=== PATIENT | female | born 1990 | race Caucasian/White ===

== ENCOUNTER 2019-09-15 14:40 | Inpatient (IN) | payer MEDICAID ==
[~2019-09-15] VITALS: Ht 160 cm; Wt 93.0 kg
[2019-09-15] MEDS: OXYTOCIN-LR 20 UNITS/1000 ML 1,000 ML IV SCH (20:15)
[2019-09-15 20:55] LABS: APPEARANCE,URINE Cloudy (CLEAR); BILIRUBIN,URINE Negative (NEGATIVE); COLOR,URINE Yellow (YELLOW); GLUCOSE, URINE (UA) Negative (NEGATIVE); KETONES,URINE Negative (NEGATIVE); LEUKOCYTE ESTERASE ,URINE Small (NEGATIVE); NITRATE,URINE Negative (NEGATIVE); OCCULT BLOOD,URINE Negative (NEGATIVE); PH,URINE 7.5 (5.0-8.0); PROTEIN,URINE Negative (NEGATIVE); UROBILINOGEN,URINE 0.2 mg/dL (0.2-1.0)
[2019-09-15] MEDS ORDERED: AMPICILLIN 2GM+NS 100ML 100 ML IV SCH (21:00)
[2019-09-15 21:27] LABS: BACTERIA,URINE Few /HPF (None Seen); RBC,URINE 0-1 /HPF (0-1); SQUAMOUS EPITHELIAL CELL,UR Few /HPF (0-2)
[2019-09-15 21:28] LABS: AMORPHOUS SEDIMENT,UR Few /LPF (None Seen)
[2019-09-15 21:46] LABS: HEMATOCRIT 35.1 % (36-48); MEAN CORPUSCULAR HEMOGLOBIN 28.9 pg (27.0-33.0); MEAN CORPUSCULAR HGB CONC 33.2 g/dL (32.0-36.0); MEAN CORPUSCULAR VOLUME 87.1 fL (79-99); NUCLEATED RED BLOOD CELLS 0.1 % (0.0-0.19); PLATELET COUNT (AUTO) 195 K/uL (130-400); RED BLOOD CELL COUNT(AUTO) 4.03 MIL/uL (4.00-5.50); RED CELL DISTRIBUTION WIDTH 15.7 % (11.0-15.5); WHITE BLOOD COUNT (AUTO) 8.9 K/uL (4.8-10.8)
[2019-09-15 22:20] VITALS: BP 120/72
[2019-09-16] VITALS (8 sets, daily range): BP systolic 93–158; BP diastolic 55–76
[2019-09-16] MEDS: LACTATED RINGERS 1000ML 1,000 ML IV PRN ×2 (00:20→05:07)
[2019-09-16] MEDS: AMPICILLIN 1GM+NS 50ML 50 ML IV SCH ×4 (01:01→15:00)
[2019-09-16] MEDS: OXYTOCIN-LR 20 UNITS/1000 ML 1,000 ML IV SCH ×3 (03:54→20:15)
[2019-09-16] MEDS ORDERED: MEPERIDINE-PF 50 MG/ML SYG IVP SCH (07:15)
[2019-09-16] MEDS ORDERED: PROMETHAZINE HCL 25 MG/ML 1ML AMPULE IM SCH (07:15)
[2019-09-16] MEDS ORDERED: WITCH HAZEL 1 PAD TP PRN (08:45)
[2019-09-16] MEDS ORDERED: ACETAMINOPHEN-CODEINE 300/30MG TAB PO PRN (08:45)
[2019-09-16] MEDS ORDERED: ACETAMINOPHEN 325 MG TAB PO PRN (08:45)
[2019-09-16] MEDS ORDERED: LANOLIN 30GM OINTMENT TP PRN (08:45)
[2019-09-16] MEDS ORDERED: BENZOCAINE/LANOLIN/ALOE VERA 60 ML AEROSOL TP PRN (08:45)
[2019-09-16] MEDS ORDERED: MEASLES/MUMPS/RUBELLA VACCINE, LIVE 0.5 ML/VIAL SQ PRN (08:45)
[2019-09-16] MEDS ORDERED: DIPH,PERTUSS(ACELL),TET VAC/PF 0.5 ML VIAL IM PRN (08:45)
[2019-09-16] MEDS ORDERED: FLU VACC QS2019-20 36MOS UP/PF 60 MCG/0.5 ML ML IM SCH (09:00)
--- NOTE | 2019-09-16 09:00 | NUR ---
FUNDUS FIRM AT UMBILICUS, SCANT BLEEDING ON MASSAGE. PT REPORTS NO PAIN AT THIS TIME. PT. ORIENTED TO ROOM. ADVISED PT TO CALL WHEN NEEDING TO AMBULATE FOR THE FIRST TIME.
--- NOTE | 2019-09-16 09:10 | NUR ---
SITZ BATH, DERMAPLAST SPRAY AND LANOLIN GIVEN AND EXPLAINED TO PATIENT. PT VOICED UNDERSTANDING.
--- NOTE | 2019-09-16 09:15 | NUR ---
FUNDUS FIRM, BLEEDING IS SCANT. NO CLOTS EXPELLED.
--- NOTE | 2019-09-16 09:35 | NUR ---
FUNDUS FIRM, BLEEDING IS SCANT. PERICARE GIVEN AT THIS TIME. CALL LIGHT LEFT IN REACH.
[2019-09-16] MEDS ORDERED: FLU VACC QS2019-20 36MOS UP/PF 60 MCG/0.5 ML ML IM ONE (09:45)
[2019-09-16] MEDS: DOCUSATE SODIUM 100 MG CAP PO SCH ×2 (09:49→21:34)
[2019-09-16] MEDS: IBUPROFEN 600 MG TABLET PO PRN ×2 (09:50→17:31)
--- NOTE | 2019-09-16 12:35 | NUR ---
PT IS RESTING WITH EYES CLOSED, CHEST IS RISING AND FALLING IN NORMAL PATTERN. IS AT BEDSIDE.
[2019-09-16] MEDS ORDERED: PNV1TABL17 PO (17:47)
[2019-09-17 00:18] VITALS: BP 112/71
[2019-09-17] MEDS: IBUPROFEN 600 MG TABLET PO PRN ×2 (00:42→09:03)
[2019-09-17] MEDS: AMPICILLIN 1GM+NS 50ML 50 ML IV SCH (03:00)
[2019-09-17 03:23] VITALS: BP 95/58
[2019-09-17 05:33] LABS: HEMATOCRIT 32.4 % (36-48); MEAN CORPUSCULAR HEMOGLOBIN 28.6 pg (27.0-33.0); MEAN CORPUSCULAR HGB CONC 32.8 g/dL (32.0-36.0); MEAN CORPUSCULAR VOLUME 87.2 fL (79-99); PLATELET COUNT (AUTO) 174 K/uL (130-400); RED BLOOD CELL COUNT(AUTO) 3.72 MIL/uL (4.00-5.50); RED CELL DISTRIBUTION WIDTH 15.5 % (11.0-15.5); WHITE BLOOD COUNT (AUTO) 9.1 K/uL (4.8-10.8)
[2019-09-17 07:14] LABS: HEPATITIS Bs ANTIGEN SCREEN P Negative (Negative)
[2019-09-17 07:19] VITALS: BP 101/56
[2019-09-17] MEDS: DOCUSATE SODIUM 100 MG CAP PO SCH (09:03)
[2019-09-17 11:44] VITALS: BP 117/78
--- NOTE | 2019-09-17 12:20 | NUR ---
DISCHARGE INSTRUCTIONS READ AND EXPLAINED TO PATIENT. NO NEW PRESCRIPTIONS GIVEN. QUESTIONS INVITED AND ANSWERED. PT VOICED UNDERSTANDING OF INSTRUCTIONS.
--- NOTE | 2019-09-17 12:50 | NUR ---
PT LEFT UNIT VIA WHEELCHAIR WITH BABY IN HAND. PERSONAL VEHICLE USED FOR TRANSPORTATION ACCOMPANIED BY SIGNIFICANT OTHER BABY SECURE IN CARSEAT
== END 2019-09-17 12:50 | disposition home or self-care (01) | DRG 560 ==
LOC: PREOBSVTOIN 19:56 → LDH 19:59 → WSH 09-16 08:55
PROVIDERS: ADMIT Obstetrics & Gynecology; ATTEND Obstetrics & Gynecology
PROC: 10E0XZZ Delivery of Products of Conception, External Approach (ICD-10-PCS; principal; 2019-09-16)
PROC: 10907ZC Drainage of Amniotic Fluid, Therapeutic from Products of Conception, Via Natural or Artificial Opening (ICD-10-PCS; 2019-09-16)
PROC: 0W8NXZZ Division of Female Perineum, External Approach (ICD-10-PCS; 2019-09-16)
PROC: 3E0234Z Introduction of Serum, Toxoid and Vaccine into Muscle, Percutaneous Approach (ICD-10-PCS; 2019-09-16)
PROC: 3E02340 Introduction of Influenza Vaccine into Muscle, Percutaneous Approach (ICD-10-PCS; 2019-09-16)
DX: O76 Abnormality in fetal heart rate and rhythm complicating labor and delivery (principal); Z37.0 Single live birth; Z23 Encounter for immunization; Z3A.40 40 weeks gestation of pregnancy
CPT/HCPCS: 36415; 81001; 85027; 86592; 86850; 86900; 86901; 87340; 90707; 90715; G0008; G0378; J0290; J2175; J2550; J2590; J7120; Q2035

== ENCOUNTER 2020-03-06 17:50 | Emergency (ER) | payer MEDICAID, OTHER ==
[~2020-03-06 17:50] MED LIST: PNV1TABL17 PO
[2020-03-06 18:25] LABS: APPEARANCE,URINE CLOUDY (CLEAR); BILIRUBIN,URINE NEGATIVE (NEGATIVE); COLOR,URINE YELLOW (YELLOW); GLUCOSE, URINE (UA) NEGATIVE (NEGATIVE); KETONES,URINE NEGATIVE (NEGATIVE); LEUKOCYTE ESTERASE ,URINE MODERATE (NEGATIVE); NITRATE,URINE NEGATIVE (NEGATIVE); OCCULT BLOOD,URINE MODERATE (NEGATIVE); PROTEIN,URINE NEGATIVE (NEGATIVE); UROBILINOGEN,URINE 0.2 mg/dL (0.2-1.0)
[2020-03-06 18:36] LABS: BACTERIA,URINE Few /HPF (None Seen); WBC,URINE 26-50 /HPF (0-1)
[2020-03-06 18:37] LABS: SQUAMOUS EPITHELIAL CELL,UR Rare /HPF (0-2)
[2020-03-06] MEDS ORDERED: CEFTRIAXONE SODIUM 1 GM ONE (19:31)
[2020-03-06] MEDS ORDERED: PHENAZOPYRIDINE HCL 200 MG TABLET ONE (19:32)
[2020-03-06] MEDS ORDERED: ACETAMINOPHEN EXTRA STRENGTH 500 MG TABLET ONE (19:32)
[2020-03-06 19:36] LABS: BASOPHILS % (AUTO) 0.2 % (0.0-5.0); EOSINOPHILS % (AUTO) 0.3 % (0.0-8.0); MEAN CORPUSCULAR HEMOGLOBIN 28.9 pg (27.0-33.0); MEAN CORPUSCULAR HGB CONC 33.1 g/dL (32.0-36.0); MEAN CORPUSCULAR VOLUME 87.4 fL (79-99); MONOCYTES % (AUTO) 8.5 % (3.0-13.0); NEUTROPHILS % (AUTO) 79.8 % (40.0-77.0); PLATELET COUNT (AUTO) 208 K/uL (130-400); RED BLOOD CELL COUNT(AUTO) 4.12 MIL/uL (4.00-5.50); RED CELL DISTRIBUTION WIDTH 12.9 % (11.0-15.5); WHITE BLOOD COUNT (AUTO) 8.6 K/uL (4.8-10.8)
[2020-03-06 19:54] LABS: CREATININE 0.9 mg/dL (0.5-1.5); POTASSIUM 3.5 mmol/L (3.5-5.1)
== END 2020-03-06 20:43 | disposition home or self-care (01) ==
LOC: EDH 17:50
DX: N10 Acute pyelonephritis (principal); R11.2 Nausea with vomiting, unspecified; R51 Headache
CPT/HCPCS: 36415; 80048; 81001; 81025; 85025; 87077; 87088; 87186; 96361; 96374; 99283; J0696